=== PATIENT | male | born 1955 | race Caucasian/White ===

== ENCOUNTER → 2018-09-19 | Day surgery (SDC) | payer BC ==
[~2018-09-19] MED LIST: ACETAMINOPHEN1 EACH PO; ALTACE10 MG PO; AUGMENTIN 500-1 EACH PO; FENOFIBRATE145 MG PO; FENTANYL CITRATE/PF 100MCG/2 ML INJ ONE; LISINOPRIL40 MG PO; MIDAZOLAM HCL 2 MG/2 ML VIAL ONE; PHENYLEPHRINE HCL 1% 10 MG/ML VIAL ONE; PROMETHAZINE PO; PROPOFOL IV EMULSION 10 MG/ML 50 ML VIAL ONE; RAMIPRIL5 MG PO; SERTRALINE HCL50 MG PO; ULTRAM 50MG50 MG PO; ZOCOR20 MG PO
[2018-09-19 12:45] VITALS: BP 104/73
--- NOTE | 2018-09-20 06:56 | Operative Report ---
DATE OF PROCEDURE: 09/19/2018 SURGEON: Christiano Mosley MD PROCEDURE: Colonoscopy and polypectomy. INDICATIONS FOR COLONOSCOPY: Surveillance colonoscopy, personal history of colon polyps. MEDICATIONS: The patient was done under MAC. Please see anesthesiologist's note. PROCEDURE IN DETAIL: With the patient in the left lateral decubitus position, the flexible fiberoptic Olympus colonoscope was inserted into the rectum with ease and advanced all the way to the cecum. It was then withdrawn slowly and mucosa overlying the cecum, ascending colon, transverse colon, and descending colon appeared to be within normal limits. Four polyps were hot biopsied. One polyp was snared from the sigmoid colon. Diverticular disease was noted also in the sigmoid colon. One polyp was hot biopsied from the rectum. The scope was then retroflexed into the distal rectum and small internal hemorrhoids were noted, none of which was actively bleeding. The scope was then straightened out; it was subsequently withdrawn. The patient tolerated the procedure well. IMPRESSION: 1. Diverticulosis. 2. Sigmoid colon polyps x5; one snared and four hot biopsied. 3. Rectal poly x1, hot biopsied. 4. Internal hemorrhoids, none actively bleeding. PLAN: Followup pathology. Initiate high-fiber and low-fat diet. Initiate high-fiber supplement. A total of 6 polyps were removed. The patient might benefit from a followup colonoscopy in 3 years. Christiano Mosley MD [facility] [place]EL[place] /[id number] cc: Chu Head DO
== END | disposition home or self-care (01) ==
LOC: OR 08:02
PROVIDERS: ATTEND Internal Medicine Gastroenterology
DX: Z12.11 Encounter for screening for malignant neoplasm of colon (principal); Z09 Encounter for follow-up examination after completed treatment for conditions other than malignant neoplasm; Z86.010 Personal history of colon polyps; I10 Essential (primary) hypertension; E78.1 Pure hyperglyceridemia; R12 Heartburn; K57.30 Diverticulosis of large intestine without perforation or abscess without bleeding; K63.5 Polyp of colon; K62.1 Rectal polyp; K64.8 Other hemorrhoids
CPT/HCPCS: 45384; 45385; J2250; J2370; J2704; 45378